=== PATIENT | female | born 1965 | race Two or more races ===

== ENCOUNTER 2019-08-26 06:00 | Outpatient (CLI) | payer OTHER ==
[~2019-08-26 06:00] MED LIST: GLUCOPHAGE XR500 MG; LOSARTAN-HCTZ1 EAC1
== END 2019-08-26 06:05 | disposition home or self-care (01) ==
LOC: LAB 06:00 → ADM 08-28 09:30 → CIR.AMB 08-30 07:00 → ADM 08-30 09:30 → CIR.AMB 08-30 09:30 → EDSTATUS 08-30 09:30
PROVIDERS: ATTEND Surgery Surgery of the Hand
DX: M67.843 Other specified disorders of tendon, right hand (principal); Z01.818 Encounter for other preprocedural examination; Z20.828 Contact with and (suspected) exposure to other viral communicable diseases

== ENCOUNTER 2019-08-29 07:31 | Outpatient (CLI) | payer OTHER | END 2019-08-29 07:37 | disposition home or self-care (01) | LOC: LAB 07:31 | PROVIDERS: ATTEND Internal Medicine | DX: E11.9 Type 2 diabetes mellitus without complications (principal) ==